=== PATIENT | male | born 1945 | race Caucasian/White ===

== ENCOUNTER 2016-07-20 12:57 | Inpatient (IN) | payer MEDICARE ==
--- NOTE | ~2016-07-20 | DS ---
Discharge Summary [facility] [address] [place]. [address] NAME: RO HINDS : 46 STATUS : DIS IN PAT#: [id number] AGE: 70 ADM/REG DATE : 07/20/16 MR#: [id number] REPORT SERV DATE: 07/22/16 DICTATED BY: OTF DALLAS DATE: 07/22/16 REPORT STATUS : Draft TRANSCRIBED BY: MODL DATE: 07/22/16 ADMISSION DATE: 07/20/2016 DISCHARGE DATE: 07/22/2016 ADMISSION DIAGNOSES: Sepsis secondary to cellulitis, urinary tract infection, Annalisa's gangrene, acute kidney injury, transaminitis. DISCHARGE DIAGNOSES: Multisystem organ failure, septic shock, thrombocytopenia, Annalisa's gangrene, acute kidney injury, lactic acidosis, anemia, shock, acute hepatic failure, lactic acidosis, mild hyperkalemia, hypocalcemia, hypoalbuminemia, acute hypercapnic respiratory failure. HOSPITAL COURSE: Mr. Hinds is a 70-year-old gentleman who was admitted on the 07/20/2016. Shortly after admission, the patient had a Urology consult and it was noted that the patient had Annalisa's gangrene. The patient had surgery on the 07/20/2016 for debridement of the penis. However, the patient unfortunately kept having worsening sepsis, and on the night of 07/20/2016 and 07/21/2016 of the morning thereof. The patient was transferred to the intensive care unit. He was noted to be in acute kidney injury, respiratory failure, with actually respiratory alkalosis. In the morning with the patient's worsening thrombocytopenia, sepsis, Infectious Disease was called. The patient's antibiotic course was changed to micafungin, clindamycin, vancomycin, meropenem. This was changed from Zosyn to higher broad coverage. The patient also underwent a Vas-Cath placement and started on CRRT. The patient had worsening acidosis and clotted the CRRT five times in 12 hours. Unfortunately, his thrombocytopenia continued to worsen. What is also very pronounced is his fibrinogen did not show DIC, however, he had a ferritin level of 32,000. It was also noted his liver was acutely failing. Unclear of the etiology. However, we suspect that the patient may have had Budd-Chiari syndrome or clotted off his liver due to his thrombocytopenia and worsening sepsis. He continued to deteriorate overnight. In the night of 07/21/2016 at about 7:30, a repeat arterial blood gas was checked which showed that the CO2 raised from 18 to 33 and pH continued to deteriorate. He was promptly intubated for respiratory support. Family was at the bedside. The patient's lactate was actually improving, however, it deteriorated further and his lactate went from 3 up to 16. Despite all efforts, on the morning of 07/22/2016, the patient was already made a DNR, family was at the bedside. CRRT clotted and the patient bradyed and went into an arrest. Around 7:30 in the morning, the patient was pronounced by the nursing staff. Family was at the bedside. Also of note, he also had hypoglycemia throughout this episode. DISPOSITION: The patient has and arrangements are currently being made. HFQ/JAMIE Otf [place] MD Discharge Summary [address] [address] NAME: RO HINDS : 46 STATUS : DIS IN PAT#: [id number] AGE: 70 ADM/REG DATE : 07/20/16 MR#: [id number] REPORT SERV DATE: 07/22/16 DICTATED BY: OTF DALLAS DATE: 07/22/16 REPORT STATUS : Draft TRANSCRIBED BY: MODL DATE: 07/22/16 / [id number] CC: MD Geronimo Armendariz MD
--- NOTE | ~2016-07-20 | CN ---
Consultation Report [facility] [address] [facility] [place]. [address] NAME: RO HINDS : 46 STATUS : DIS IN PAT#: [id number] AGE: 70 ADM/REG DATE : 07/20/16 MR#: [id number] REPORT SERV DATE: 07/22/16 DICTATED BY: CHON ZARATE DATE: 07/22/16 REPORT STATUS : Draft TRANSCRIBED BY: MODL DATE: 07/22/16 CONSULT DATE OF CONSULTATION: 07/22/2016 REASON FOR CONSULTATION: Acute liver injury/shock liver. HISTORY: Mr. Hinds is a 70-year-old, male with history of diabetes, hypertension, hyperlipidemia, on statin for long time, colonic polyps, admitted for penile gangrene and suprapubic cellulitis directly from his primary care physician's office, Dr. Cisneros. History as obtained from the chart. He has been seen since admission, initially admitted by Dr. Sky, hospitalist service, on the floor, then transferred to Pulmonary Critical Care in ICU due to acute kidney injury and sepsis, ended up getting intubated yesterday evening, started CRRT after consultation with Nephrology, also seen by infectious disease. After obtaining all the cultures, broad-spectrum antibiotic has been started in the form of vancomycin. Zosyn was stopped and started on meropenem. Clindamycin and micafungin by Dr. Aguiar. I was consulted yesterday evening. When I looked at the labs, his liver enzymes were in 100s predominantly AST higher than ALT, suspecting shock liver with medication injury since he has been on high dose of statin for long time. His condition has progressed significantly overnight. He has been on CRRT, filter has been changed multiple times, difficult to maintaining his pressure. He is on maximum Levophed and vasopressin. Blood pressure is still running in 50s and 60s. He started having bradycardia in 30s and 40s. Multiple family members are present in the room including . has just signed the paper for DNR and CRRT is about to stop. I have reviewed all the labs and the imaging studies and all the charts documentation and dictation by consultation. Since admission, he has also had surgery by Dr. Raymond. PAST MEDICAL HISTORY: Diabetes, hypertension, lipids, colonic polyp. No known liver disease. SOCIAL HISTORY: . 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 No alcohol or tobacco. ALLERGIES: NONE REPORTED. MEDICATIONS: Medicines at home prior to admission are Eliquis, aspirin, calcium, vitamin D, Lomotil, Lexapro, glimepiride, linagliptin with metformin, Zofran, Pravachol, quinapril with hydrochlorothiazide, and verapamil. FAMILY HISTORY: Colon cancer and aneurysm. REVIEW OF SYSTEMS: Unable to obtain. Consultation Report [address] [place]. [address] NAME: RO HINDS : 46 STATUS : DIS IN PAT#: [id number] AGE: 70 ADM/REG DATE : 07/20/16 MR#: [id number] REPORT SERV DATE: 07/22/16 DICTATED BY: CHON ZARATE DATE: 07/22/16 REPORT STATUS : Draft TRANSCRIBED BY: JAMIE DATE: 07/22/16 PHYSICAL EXAMINATION: GENERAL: Well developed, well nourished, intubated, sedated, and not responsive. VITAL SIGNS: Blood pressure 50s/70s, pulse 60, respirations 24, pulse 80. HEENT: Eyes have pallor, no icterus. Pupils are sluggishly reactive. NECK: Supple. Difficult to evaluate for JVD. No thyromegaly appreciated. LUNGS: Bilateral basilar rales. HEART: S1, S2 present. Bradycardia. Irregular. ABDOMEN: Distended, obese, soft. Bowel sounds are sluggish. PELVIS: Pelvic area was not examined since it has been covered by the dressing. LABORATORY DATA: WBC 13, hemoglobin 12, platelet 26, INR 3, D-dimer more than 20, ferritin 31,000, ionized calcium 2.8, ALT 1400, AST 4700, total bilirubin 2.8, albumin 1.2, sodium 136, potassium 4.7, chloride 96, bicarb 11, BUN 41, creatinine 4.4, glucose 95. CT of the abdomen; unremarkable liver, no signs of cirrhosis or severe portal hypertension, minimal free fluid in the abdomen. IMPRESSION: 1. Shock liver with septic syndrome with multiorgan failure. 2. Acute kidney injury secondary to ATN due to shock on CRRT. 3. Acute hypoxic respiratory failure due to septic shock. 4. Septic shock secondary to underlying Annalisa gangrene. 5. Severe metabolic acidosis, not responding to CRRT or bicarb drip. 6. Clinical DIC. PLAN: 1. This morning, after I came, the patient has been just made DNR, and has signed the paperwork. CRRT is about to stop. 2. From liver point of view, not much needs to be done. Prognosis extremely poor, obviously not a candidate for liver transplant. I had detail discussion with his . I answered all the questions. She understood the current situation and agreed for the outcome. I have not ordered any medication or changed anything at this point. Thank you for the consult. Please call if you any question or concerns. CP/MODL Chon Zarate M.D. / [id number] CC: MD Geronimo Armendariz MD
--- NOTE | ~2016-07-20 | CN ---
Consultation Report [facility] [address] [place]. [address] NAME: RO HINDS : 46 STATUS : ADM IN [facility]#: [id number] AGE: 70 ADM/REG DATE : 07/20/16 MR#: [id number] REPORT SERV DATE: 07/21/16 DICTATED BY: CR ARAGON DATE: 07/20/16 REPORT STATUS : Draft TRANSCRIBED BY: MODFior DATE: 07/20/16 DATE OF CONSULTATION: 07/20/2016 REASON FOR CONSULTATION: Penile infection. HISTORY OF PRESENT ILLNESS: Mr. Hinds is a 70-year-old white gentleman who was admitted to Dr. Sky's service today. He had seen his primary care physician, Dr. Cisneros, for the past couple of days, however, was unaware of the presenting problem until today. This gentleman states that he has been feeling poorly for several days and has in fact not been able to void since Tuesday which is about four days ago. His stated that he trickled a small amount of urine, however, what worse was that he began having pain and swelling in his penis with discoloration of the skin. He denied fever and chills, nausea and vomiting. He is a diabetic. He states Dr. Cisneros put him on Eliquis, he has taken two tablets. He has never seen a urologist before and denies any prior urinary tract history. PHYSICAL EXAMINATION: GENERAL: This is an acutely ill-appearing white gentleman. VITAL SIGNS: Reviewed. He is not febrile. CHEST: Clear. ABDOMEN: Not distended. Normal bowel sounds. No tenderness. EXTREMITIES: Unremarkable. : Penis is circumcised (I questioned the patient about this as well. The penile skin, particularly dorsally is discolored, dusky appearing with necrotic appearing epithelium. The glans is viable, otherwise unremarkable. The scrotum and testes are unremarkable. RECTAL: Not done. 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 PLAN: I explained the emergent nature of this situation to the patient and his . Dr. Sky was present as well. I have discussed this with him. We will need to proceed to an emergency debridement. Also, recommended an emergency CT scan which was done and reviewed. The bladder was not markedly distended and there was no hydronephrosis. I recommend broad- spectrum antibiotics and we are starting Zosyn and vancomycin. Serum creatinine is 6, white cell count is normal. Impression is Annalisa's gangrene. Plan, emergent debridement following emergent noncontrast CT scan. Procedure and risks explained to the patient. /JAMIE Cr Aragon M.D. / [id number] Consultation Report [address] [place]. [address] NAME: RO HINDS : 46 STATUS : ADM IN [facility]#: [id number] AGE: 70 ADM/REG DATE : 07/20/16 MR#: [id number] REPORT SERV DATE: 07/21/16 DICTATED BY: CR ARAGON DATE: 07/20/16 REPORT STATUS : Draft TRANSCRIBED BY: JAMIE DATE: 07/20/16 CC: Julio César Sky MD
--- NOTE | ~2016-07-20 | OP ---
Record Of Operation [facility] [address] [place]. [address] NAME: RO HINDS : 46 STATUS : ADM IN [facility]#: [id number] AGE: 70 ADM/REG DATE : 07/20/16 MR#: [id number] REPORT SERV DATE: 07/21/16 DICTATED BY: YADIRA CASTRO DATE: 07/21/16 REPORT STATUS : Draft TRANSCRIBED BY: MODFior DATE: 07/21/16 DATE OF PROCEDURE: 07/21/2016 TITLE OF PROCEDURE: Endotracheal intubation. INDICATION: Respiratory failure. PROCEDURE NOTE: Time-out was completed verifying correct patient and procedure. The patient was placed in a flat position. Sedation was obtained using 100 mg of propofol. The patient was easily ventilated using an Ambu bag. The GlideScope was used and inserted into the oropharynx at which time there was a grade 2 view of the vocal cords. An 8.0-Gibraltarian endotracheal tube was inserted and visualized going through the vocal cords. Stylet was removed. Colorimetric change was visualized on the CO2 meter. Breath sounds were heard in both lung larose bilaterally. The endotracheal tube was placed at 24 cm, measured at the teeth. I was present for the entire procedure. Chest x-ray was ordered to assess for pneumothorax and verify endotracheal tube placement. The patient tolerated the procedure well and there were no complications. KARSON/JAMIE Yadira Castro MD / [id number] CC: MD Geronimo Armendariz MD
--- NOTE | ~2016-07-20 | OP ---
Record Of Operation [facility] [address] [place]. [address] NAME: RO HINDS : 46 STATUS : ADM IN PAT#: [id number] AGE: 70 ADM/REG DATE : 07/20/16 MR#: [id number] REPORT SERV DATE: 07/20/16 DICTATED BY: CR ARAGON DATE: 07/20/16 REPORT STATUS : Draft TRANSCRIBED BY: MODL DATE: 07/20/16 DATE OF PROCEDURE: 07/20/2016 PREOPERATIVE DIAGNOSIS: Annalisa's gangrene in the penile skin. POSTOPERATIVE DIAGNOSIS: Annalisa's gangrene in the penile skin. OPERATIVE PROCEDURE: Sharp debridement of penis. ANESTHESIA: General inhalation. SURGEON: Cr Aragon M.D. CREATIVE RESOURCE MANAGER: Delroy Edmonds. ESTIMATED BLOOD LOSS: 5 mL. SPECIMENS: Devitalized dorsal penile skin. DRAINS: One #14 coude Leonard catheter. IMMEDIATE POSTOP: Critical. DESCRIPTION OF PROCEDURE: The patient was brought into the surgery suite, given general inhalational anesthetic in the supine position. Penis was prepped and draped in sterile fashion. The dorsum of the penis was markedly edematous and appeared with gangrenous changes to the skin. The glans was viable. The devitalized appearing skin was sharply debrided with scissor dissection until I reached what appeared to be vitalized tissue. Bovie cautery was used to control bleeding. At the close of the procedure, a #14 coude Leonard was passed per urethra into the bladder. A small amount of concentrated urine was obtained. He was sent to the lab for culture. At this point, sterile dressing was placed upon the penis and the was patient was awakened and sent to recovery in critical condition. MS/MODL Cr Aragon M.D. / [id number] CC: Julio César Sky MD
--- NOTE | ~2016-07-20 | HP ---
History And Physical [address] [address] NAME: RO HINDS : 46 STATUS : ADM IN PAT#: [id number] AGE: 70 ADM/REG DATE : 07/20/16 MR#: [id number] REPORT SERV DATE: 07/20/16 DICTATED BY: SERA SKY DATE: 07/20/16 REPORT STATUS : Draft TRANSCRIBED BY: MODL DATE: 07/20/16 DATE OF ADMISSION: 07/20/2016 REASON FOR ADMISSION: Direct admission for sepsis secondary to cellulitis along with hematuria and acute kidney injury from Dr. Cisneros's office. CHIEF COMPLAINT: "I have been feeling well since ." HISTORY OF PRESENT ILLNESS: A 70-year-old white male with a history of type 2 diabetes, hypertension, hyperlipidemia, initially been having issues since . The patient and his said that, he had a fever of 102 with chills and some dribbling of urine to the point, where he had to change his underwear several times, which is unusual for him. He also noticed that, he had some hematuria. The patient also had some body aches, was tested for the flu, and was found to be flu negative. He did get a shot of Rocephin on 07/18/2016. He has also been having some loose stools. The patient was in Dr. Cisneros's office today and finally admitted to having some redness around his penis and the patient had what looked like a considerable cellulitis with a penile mass. The patient states that, his dribbling of urine has stopped and he has actually been unable to void for the past day or two. His has been encouraging him to take some fluids including water and Gatorade. He has been keeping it down, but he feels like he is a little bit dehydrated. He did present with a mildly low blood pressure in the hospital. The patient denies any new changes in medications except for taking one to two doses of Eliquis, started by Dr. Cisneros. The patient denies any chest pain, nausea, vomiting, diaphoresis, shortness of breath. REVIEW OF SYSTEMS: As per HPI. Otherwise, 10-point system reviewed and negative. PAST MEDICAL HISTORY: Positive for hypertension, type 2 diabetes, valvular stenosis, hyperlipidemia, colonic polyps, bilateral cataracts. PAST SURGICAL HISTORY: Nothing. SOCIAL HISTORY: He denies any smoking, occasional alcohol use. He is with four kids. 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 FAMILY HISTORY: Denies any penile issues. MEDICATIONS: Include Eliquis 5 mg twice a day, aspirin 81 mg daily, Caltrate 600 mg twice a day, Lomotil p.r.n., Lexapro 10 mg every evening, Amaryl 1 mg every evening, Jentadueto 2.08/999 mg twice a day, Zofran p.r.n., Pravachol 80 mg at bedtime, quinapril/hydrochlorothiazide 20/25 mg daily, verapamil 300 mg every evening. ALLERGIES: NO KNOWN ALLERGIES.. PHYSICAL EXAMINATION: VITAL SIGNS: Blood pressure is 98/54, temperature is 37.3, pulse is 81, respirations are History And Physical [address] [address] NAME: RO HINSD : 46 STATUS : ADM IN [facility]#: [id number] AGE: 70 ADM/REG DATE : 07/20/16 MR#: [id number] REPORT SERV DATE: 07/20/16 DICTATED BY: SERA SKY DATE: 07/20/16 REPORT STATUS : Draft TRANSCRIBED BY: JAMIE DATE: 07/20/16 20, saturating 100% on room air. GENERAL: He is no acute distress. Mildly ill appearing, but nontoxic. HEENT: Normocephalic and atraumatic head. Extraocular muscles are intact. Oropharynx is clear, but dry. NECK: Supple. No JVD. CARDIAC: Regular rhythm. No gallops. PULMONARY: Clear to auscultation bilaterally. ABDOMEN: Soft, nontender, nondistended. Positive bowel sounds. Negative CVA tenderness. EXTREMITIES: Show no clubbing, cyanosis, or edema. PSYCHIATRIC: Cooperative, appears a little withdrawn. NEUROLOGICAL: No focal deficits. : Some visible hematuria on the penile head. There appears to be a penile mass on the anterior portion of the glans along with a suprapubic cellulitis. LABORATORIES: CBC is pending. CMP shows a sodium of 129, chloride 89, BUN of 60, creatinine 6.67, albumin 2.8. ALT 581, AST 771. IMPRESSION: 1. Sepsis secondary to cellulitis with a possible component of urinary tract infection. 2. Hematuria. 3. Penile mass. 4. Acute kidney injury. 5. Transaminitis. 6. Type 2 diabetes. PLAN: Plan is to do IV fluids. Start Ancef. Obtain labs with a procalcitonin, urinalysis, and culture. Consult Urology. A complete abdominal ultrasound to evaluate the liver along with the kidneys. We will hold any nephrotoxic agents including glimepiride, aspirin, Eliquis, Jentadueto, JAVI inhibitors, and diuretics. BETITO/MARIANNAL Sera Sky MD / [id number] CC: MD Geronimo Armendariz MD
--- NOTE | ~2016-07-20 | OP ---
Record Of Operation [facility] [address] [place]. [address] NAME: RO HINDS : 47 STATUS : ADM IN [facility]#: [id number] AGE: 70 ADM/REG DATE : 07/20/16 MR#: [id number] REPORT SERV DATE: 07/21/16 DICTATED BY: OTF DALLAS DATE: 07/21/16 REPORT STATUS : Draft TRANSCRIBED BY: MODL DATE: 07/21/16 DATE OF PROCEDURE: 07/21/2016 PROCEDURE: Right IJ Vas-Cath placement. PREOPERATIVE DIAGNOSIS: Acute kidney injury and septic shock. POSTOPERATIVE DIAGNOSIS: Acute kidney injury and septic shock. INDICATION FOR PROCEDURE: The patient is having septic shock, on pressor support and in need of renal replacement therapy. PROCEDURE NOTE: The patient was alert during the procedure, placed him in Trendelenburg position. We anesthetized the right neck after sterilization in sterile technique. After he was sterilized, using ultrasound guidance, we were able to isolate the right IJ. We were able to inserted the finer needle into the right IJ and placed the guidewire. Prior to dilation, we evaluated using ultrasound to ensure that we were in the IJ position. We then dilated the tract through the sternocleidomastoid muscle. At that moment in time, we were able to dilate the tract and have return of venous blood. We placed the Vas-Cath 15 cm line into this area and had return dark blood through both ports. We were able to secure this Vas-Cath and instill heparin into the port for use of CRRT machine. OUTCOME: Successful right IJ Vas-Cath with no apparent immediate complications. HFQ/JAMIE Otf [place] MD / [id number] CC: MD Geronimo Armendariz MD
--- NOTE | ~2016-07-20 | CN ---
Consultation Report [facility] [address] [place]. [address] NAME: RO HINDS : 47 STATUS : ADM IN PAT#: [id number] AGE: 70 ADM/REG DATE : 07/20/16 MR#: [id number] REPORT SERV DATE: 07/21/16 DICTATED BY: SUSHMA RUIZ DATE: 07/21/16 REPORT STATUS : Draft TRANSCRIBED BY: MODL DATE: 07/21/16 NEPHROLOGY CONSULTATION DATE OF CONSULTATION: 07/21/2016 INDICATION FOR CONSULTATION: Acute kidney injury. HISTORY OF PRESENT ILLNESS: Mr. Hinds is a 70-year-old male, who was sent from Dr. Cisneros's office following presentation for fever. He presented with a fever of 102 and chills, dribbling of urine, and had noted some hematuria. In addition, he had myalgias. On evaluation in the emergency room, he reported no urine output for two days. He was noted to have a penile mass anterior portion of the glans along with suprapubic cellulitis. Urology was consulted and Dr. Raymond took him to surgery urgently for sharp debridement of the penis and placement of 14 coude Leonard catheter. His baseline creatinine appears to be 1.01 in 01/2016. At presentation, his creatinine was 4.53 and has risen to 6.78 with a little urine output. Currently, he is on a bicarb drip and Levophed. PAST MEDICAL HISTORY: Type 2 diabetes mellitus, hypertension, colon polyps, hyperlipidemia, anxiety, depression, mild pulmonic stenosis, and cataracts. REVIEW OF SYSTEMS: HEENT: Negative. PULMONARY: Notes some shortness of breath. No cough or hemoptysis. CARDIAC: No chest pain. GI: Some loose stools. Minimal abdominal pain. : Noted hematuria, dribbling urine, and difficulty passing urine for two days. MUSCULOSKELETAL: Generalized myalgias. INTEGUMENT: Some redness over lower abdomen. No rash. NEUROLOGIC: No lateralizing weakness or seizure activity. Remainder of 12-point review of systems is negative. SOCIAL HISTORY: Per chart, no smoking, occasional alcohol use. with four kids. 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 FAMILY HISTORY: No end-stage renal disease. Positive for hypertension. MEDICATIONS: Eliquis; aspirin; calcium citrate; Lomotil; Lexapro; Amaryl; Jentadueto, which is linagliptin/metformin; Zofran; pravastatin; quinapril; verapamil. PHYSICAL EXAMINATION: VITAL SIGNS: Blood pressure 90/54, respiratory rate 20, temp max was 102.9 decreasing to 98.6. GENERAL: Pleasant white male, somewhat anxious. Consultation Report [facility] [address] [place]. [address] NAME: RO HINDS : 47 STATUS : ADM IN PAT#: [id number] AGE: 70 ADM/REG DATE : 07/20/16 MR#: [id number] REPORT SERV DATE: 07/21/16 DICTATED BY: SUSHMA RUIZ DATE: 07/21/16 REPORT STATUS : Draft TRANSCRIBED BY: JAMIE DATE: 07/21/16 HEENT: Eyes, no scleral icterus. Pupils reactive symmetrically. Nares patent. No lesions. Throat, no injection. Mucous membranes dry. NECK: No thyromegaly, masses, bruits. CHEST/LUNGS: Crackles laterally. No wheezing. No rhonchi. ABDOMEN: Positive bowel sounds. Nontender. No hepatosplenomegaly. : Indwelling Leonard. RECTAL: Not performed. EXTREMITIES: No edema. No calf tenderness. DERMIS: No rash. NEUROLOGIC: Cranial nerves appear intact. No lateralizing weakness. MUSCULOSKELETAL: No deformity. IMPRESSION: 1. Acute kidney injury likely acute tubular necrosis due to sepsis and severe shock complicated by prerenal state, JAVI inhibitor effect. 2. Acute hypoxemic respiratory failure. 3. Genitourinary cellulitis/Annalisa gangrene. 4. Type 2 diabetes mellitus. 5. Lactic acidosis/metabolic acidosis. 6. Transaminitis likely due to sepsis and complicated by Tylenol. 7. Thrombocytopenia. 8. History of hypertension. 9. Colon polyps. 10.Dyslipidemia. 11.Mild pulmonic stenosis. 12.Depression and anxiety. PLAN: 1. Labs. 2. Began SHRIMP CLEANER. 3. Stop bicarb drip once SHRIMP CLEANER is in progress. CRISTOPHER/JAMIE Sushma Ruiz M.D. / [id number] CC: MD Geronimo Armendariz MD
--- NOTE | ~2016-07-20 | CN ---
Consultation Report [facility] [address] [place]. [address] NAME: RO HINDS : 47 STATUS : ADM IN PAT#: [id number] AGE: 70 ADM/REG DATE : 07/20/16 MR#: [id number] REPORT SERV DATE: 07/22/16 DICTATED BY: DIEUDONNE ARTHUR DATE: 07/21/16 REPORT STATUS : Draft TRANSCRIBED BY: MODL DATE: 07/21/16 INFECTIOUS DISEASE CONSULT DATE OF CONSULTATION: REASON FOR CONSULT: Severe sepsis. HISTORY OF PRESSENT ILLNESS: A 70-year-old white male with history of diabetes, hypertension, hyperlipidemia, colon polyps, who was admitted for a penile gangrene and suprapubic cellulitis. The history is obtained from the chart and from the . The patient is awake but apparently unable to provide sufficient information. He works at [employer], and he comes home on weekends. Last Tuesday, when he came he complained of body aches, fever, had some nausea, vomiting, and loose stools. He got worse over the weekend. At some point, he had difficulty urinating with just dribbling and maybe hematuria. He saw his PCP two days ago who did a flu test, it was negative, and apparently gave him a dose of Rocephin as well as prescribed Lomotil. In Dr. Cisneros's note, he recorded myalgias, fever, he wanted to do an echocardiogram. WBC was 13, hemoglobin 14, platelets 130. Glucose was 220. Influenza negative. The patient returned the next day after the noticed the redness in the suprapubic area. It is unclear how long he has had. Dr. Cisneros referred him for admission. I tried to ask the patient and the . Again, it is unclear what caused the penile swelling. No trauma or bites were reported. No prior history of skin infections, boils, or wounds. At the hospital, the urologist describes a dusky dorsal penile skin and suprapubic cellulitis. There is swelling of the glans. He was hypotensive. Lab work showed acute renal insufficiency with a creatinine of 6.6, hyponatremia with sodium of 129, liver failure with ALT of 580 and AST of 770, procalcitonin of 47. He was started on vancomycin and Zosyn. A CT scan was done as well and showed edema of the pelvic floor, groins, scrotum, penis, bilateral inguinal lymph nodes, and possibly multiple iliac lymph nodes. Also, there is an atrophic pancreas and prostate above 4 x 5 cm with calcifications. The patient was taken to the operating room last night for debridement of penile dorsum gangrene. A Leonard catheter was placed, but there is little urine. He was then transferred to ICU. He is not on a ventilator, but he is tachypneic. ABGs showed metabolic acidosis. He is on pressor support now with Levophed of 20. He made very little urine. He has not had any vomiting or bowel movements today. LAB WORK: Shows a CO2 of 17, creatinine increased now to 8, bicarb decreased to 14, bilirubin increased to 2.8, ALT to 1200, AST to 3800. Chest x-ray shows some basilar atelectasis. A dialysis catheter was placed, and he started CRRT. Also right subclavian line was placed. Upon discussing with the patient, he does not complain of any area of pain. PAST MEDICAL HISTORY: As I mentioned above plus cataracts, colon polyps, and history of Consultation Report [address] [address] NAME: RO HINDS : 47 STATUS : ADM IN [facility]#: [id number] AGE: 70 ADM/REG DATE : 07/20/16 MR#: [id number] REPORT SERV DATE: 07/22/16 DICTATED BY: DIEUDONNE ARTHUR DATE: 07/21/16 REPORT STATUS : Draft TRANSCRIBED BY: MODFior DATE: 07/21/16 heart murmur. He had an illness several years ago that was unexplained that lasted several weeks. SOCIAL HISTORY: He is . 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 He has dogs but did not bite or scratch him. ALLERGIES: NONE REPORTED. MEDICATIONS ON ADMISSION: Eliquis, aspirin, calcium, vitamin D, Lomotil as needed, Lexapro, glimepiride, linagliptin with metformin, Zofran as needed, Pravachol, quinapril with hydrochlorothiazide, and verapamil extended release. FAMILY HISTORY: Colon cancer and aneurysms. PHYSICAL EXAMINATION: GENERAL: He is actually awake, but he is tachypneic and weak. HEENT: He has anterior tongue bruising. Oral mucosa is dry. HEART: Regular rhythm. Distant sounds. LUNGS: Clear to auscultation anteriorly. ABDOMEN: Distended quite, nontender to palpation, suprapubic area erythema which according to the has not progressed. : Penile skin, foreskin was resected. The scrotum has some edema, but I do not see necrotic areas. He has a right subclavian line as I mentioned. His feet and hands are very cold to touch. He has no erythema over his buttocks. ASSESSMENT AND PLAN: 1. Severe sepsis with shock and multiorgan failure including acidosis, acute renal failure, liver failure. He is started on CRRT. He is on pressors. 2. Penile skin gangrene of unclear etiology, status post surgical debridement last night. 3. Diabetes. Obviously, he is extremely ill. No culture result available. His blood and urine cultures pending, but he was making little urine. The lab systems analyst could not find operative culture specimen. During this process, he probably had perineal and penile exposure to feces due to loose stools. He is a diabetic although the hemoglobin A1c is not very high, just 7. Given the illness, I would like to give very broad-spectrum antibiotics. This is the fact that now we see resistant bacteria in the community and I cannot exclude given the possibility of a Katie infection. I am going to use vancomycin, meropenem, micafungin, and add clindamycin for the possibility of toxin producing gram-positive coccus. Check an echocardiogram. He also has now thrombocytopenia platelet count down to 83, neutropenia, WBC of 3.7. This factors along with hypoglycemia are poor prognostic factors. I discussed with the along with Dr. Dallas and explained the severity of his illness. I discussed with Dr. Dallas as well. Consultation Report [place] [id number] [facility] [place]. [address] NAME: RO HINDS : 47 STATUS : ADM IN [facility]#: [id number] AGE: 70 ADM/REG DATE : 07/20/16 MR#: [id number] REPORT SERV DATE: 07/22/16 DICTATED BY: DIEUDONNE ARTHUR DATE: 07/21/16 REPORT STATUS : Draft TRANSCRIBED BY: JAMIE DATE: 07/21/16 ANTOLIN/JAMIE Dieudonne Arthur M.D. / [id number] CC: MD Geronimo Armendariz MD
[2016-07-20 00:02] LABS: CALCIUM, SERUM 8.5 MG/DL (8.5-10.4); CO2 (CARBON DIOXIDE) 23 MMOL/L (24-34); SGOT(AST) 450 U/L (5-40); SGPT(ALT) 379 U/L (5-65); TOTAL BILIRUBIN 0.6 MG/DL (0-1.2); TOTAL PROTEIN 6.6 G/DL (6.0-8.5)
[2016-07-20 00:08] LABS: A/G RATIO 0.9 (0.7-1.9); ALBUMIN 3.1 G/DL (3.5-5.0); ALKALINE PHOSPHATASE 90 U/L (45-117); BUN (BLOOD UREA NITROGEN) 39 MG/DL (6-23); CREATININE 4.53 MG/DL (0.70-1.30); GFR AFRICAN AMERICAN 14 ML/MIN (>=60); GFR NON AFRICAN AMERICAN 12 ML/MIN (>=60); GLOBULIN 3.5 G/DL (2.5-4.1); GLUCOSE, SERUM 214 MG/DL (60-99)
[~2016-07-20 12:57] MED LIST: AMARYL1 MG PO; ASAB PO; JENTADUETO 2.51 EAC2; LEXAPRO10 PO; OS500+D PO; PRAVACHOL80 MG PO; QUINARETIC PO; VERELAN PM300 MG PO; VITC500 PO
[2016-07-20 13:42] LABS: CHLORIDE, SERUM 91 MMOL/L (96-112); POTASSIUM, SERUM 3.8 MMOL/L (3.5-5.3); SODIUM, SERUM 133 MMOL/L (135-148)
[2016-07-20 13:42] LABS: A/G RATIO 0.7 (0.7-1.9); ALBUMIN 2.8 G/DL (3.5-5.0); ALKALINE PHOSPHATASE 98 U/L (45-117); CALCIUM, SERUM 8.7 MG/DL (8.5-10.4); CO2 (CARBON DIOXIDE) 20 MMOL/L (24-34); GFR AFRICAN AMERICAN 9 ML/MIN (>=60); GFR NON AFRICAN AMERICAN 8 ML/MIN (>=60); GLOBULIN 3.8 G/DL (2.5-4.1); GLUCOSE, SERUM 188 MG/DL (60-99); POTASSIUM, SERUM 4.1 MMOL/L (3.5-5.3); SGOT(AST) 771 U/L (5-40); SGPT(ALT) 581 U/L (5-65); TOTAL BILIRUBIN 0.7 MG/DL (0-1.2); TOTAL PROTEIN 6.6 G/DL (6.0-8.5)
[2016-07-20 13:43] LABS: BUN (BLOOD UREA NITROGEN) 60 MG/DL (6-23); CHLORIDE, SERUM 89 MMOL/L (96-112); CREATININE 6.67 MG/DL (0.70-1.30); SODIUM, SERUM 129 MMOL/L (135-148)
[2016-07-20] MEDS ORDERED: LOM PO (14:03)
[2016-07-20] MEDS ORDERED: ZOFRAN8 PO (14:03)
[2016-07-20] MEDS ORDERED: AMARYL1 MG PO (14:04)
[2016-07-20] MEDS ORDERED: ACCURETIC1 TAB PO (14:04)
[2016-07-20] MEDS ORDERED: JENTADUETO 2.51 EAC2 PO (14:04)
[2016-07-20] MEDS ORDERED: ELIQUIS 5 MG TAB5 MG PO (14:04)
[2016-07-20] MEDS ORDERED: CALTRA600D PO (14:05)
[2016-07-20] MEDS ORDERED: ASAB PO (14:05)
[2016-07-20] MEDS ORDERED: LEXAPRO10 PO (14:05)
[2016-07-20] MEDS ORDERED: PRAVACHOL80 MG PO (14:06)
[2016-07-20] MEDS ORDERED: VERELAN PM300 MG PO (14:06)
[2016-07-20 16:41] LABS: BASOPHILS 0.1 %; BASOPHILS ABSOLUTE 0.01 10/3/uL (0.0-0.16); EOSINOPHILS 2.2 %; EOSINOPHILS ABSOLUTE 0.15 10/3/uL (0.0-0.53); IMMATURE GRANULOCYTES 0.7 %; IMMATURE GRANULOCYTES ABSOLUTE 0.05 10/3/uL (0.0-0.11); LYMPHOCYTES 7.5 %; MEAN CORPUS HGB CONC 35.1 g/dL (32.0-36.0); MEAN CORPUSCULAR HEMOGLOB 30.8 pg (26.0-34.0); MEAN CORPUSCULAR VOLUME 87.7 fL (80-100); MEAN PLATELET VOLUME 11.7 fL (9.2-13.0); MONOCYTES 2.5 %; MONOCYTES ABSOLUTE 0.17 10/3/uL (0.21-1.20); PLATELET COUNT 123 10/3/uL (150-400); RBC DISTRIBUTION WIDTH 15.1 % (12.0-16.0); RED CELL COUNT 4.22 10/6/uL (4.7-6.1); WHITE BLOOD CELLS 6.7 10/3/uL (4.5-10.5)
[2016-07-20 16:44] LABS: MANUAL DIFF NO %
[2016-07-20 16:52] LABS: INTERNATIONAL NORMAL RATI 1.9 UNITS (-); PROTIME (NOT ORD) 21.5 SEC (12.0-14.5)
[2016-07-20 22:59] LABS: BE (BASE EXCESS) -6.9 MEQ/L (0 +/- 2.5); CARBOXYHEMOGLOBIN 0.2 % (0-3); DEVICE NC; HCO3 (ACTUAL BICARBONATE) 17.2 MEQ/L (23-27); HEMOBLOGIN CONTENT 12.6 G/DL (14-18); INSTRUMENT SERIAL # 8083; METHEMOGLOBIN 0.4 % (0-3); OPERATOR ID 30013; PCO2 (CO2 TENSION) 31 MMHG (35-45); PO2 (O2 TENSION) 59 MMHG (79-93); SAMPLE Arterial; pH 7.37 (7.37-7.43)
[2016-07-20 23:28] LABS: HEMATOCRIT 33.9 % (40.0-51.0); HEMOGLOBIN 11.9 g/dL (13.6-17.8); MEAN CORPUS HGB CONC 35.1 g/dL (32.0-36.0); MEAN CORPUSCULAR HEMOGLOB 30.3 pg (26.0-34.0); MEAN CORPUSCULAR VOLUME 86.3 fL (80-100); MEAN PLATELET VOLUME 11.4 fL (9.2-13.0); PLATELET COUNT 96 10/3/uL (150-400); RBC DISTRIBUTION WIDTH 15.1 % (12.0-16.0); RED CELL COUNT 3.93 10/6/uL (4.7-6.1); WHITE BLOOD CELLS 4.7 10/3/uL (4.5-10.5)
[2016-07-20 23:33] LABS: MANUAL DIFF YES %
[2016-07-20 23:47] LABS: A/G RATIO 0.7 (0.7-1.9); ALBUMIN 2.3 G/DL (3.5-5.0); ALKALINE PHOSPHATASE 73 U/L (45-117); BUN (BLOOD UREA NITROGEN) 69 MG/DL (6-23); CALCIUM, SERUM 7.6 MG/DL (8.5-10.4); CHLORIDE, SERUM 93 MMOL/L (96-112); CO2 (CARBON DIOXIDE) 19 MMOL/L (24-34); CREATININE 6.69 MG/DL (0.70-1.30); GFR AFRICAN AMERICAN 9 ML/MIN (>=60); GFR NON AFRICAN AMERICAN 8 ML/MIN (>=60); GLOBULIN 3.3 G/DL (2.5-4.1); GLUCOSE, SERUM 78 MG/DL (60-99); PHOSPHORUS, SERUM 3.8 MG/DL (2.5-4.5); POTASSIUM, SERUM 4.2 MMOL/L (3.5-5.3); SGOT(AST) 1243 U/L (5-40); SGPT(ALT) 589 U/L (5-65); SODIUM, SERUM 130 MMOL/L (135-148); TOTAL PROTEIN 5.6 G/DL (6.0-8.5)
[2016-07-20 23:49] LABS: BAND NEUTROPHILS 58 %; BASOPHILS 1 %; BASOPHILS ABSOLUTE (CALC) 0.05 10/3/uL (0.0-0.16); EOSINOPHILS 1 %; EOSINOPHILS ABSOLUTE (CALC) 0.05 10/3/uL (0.0-0.53); IMMATURE GRANS ABSOLUTE (CALC) 0.09 10/3/uL (0.0-0.11); LYMPHOCYTES 4 %; LYMPHOCYTES ABSOLUTE (CALC) 0.19 10/3/uL (0.67-4.30); METAMYELOCYTES 1 %; MONOCYTES 4 %; MONOCYTES ABSOLUTE (CALC) 0.19 10/3/uL (0.21-1.20); MYELOCYTES 1 %; NEUTROPHILS ABSOLUTE (CALC) 4.14 10/3/uL (2.02-8.40); PLATELET ESTIMATE SLT DEC (ADEQUATE); SEGMENTED NEUTROPHIL (0) 30 %; TOTAL NUCLEATED CELLS 100
[2016-07-20 23:50] LABS: RBC MORPHOLOGY NORM (NORMAL)
[2016-07-21 04:45] LABS: BASOPHILS 0.3 %; BASOPHILS ABSOLUTE 0.01 10/3/uL (0.0-0.16); EOSINOPHILS 3.5 %; EOSINOPHILS ABSOLUTE 0.13 10/3/uL (0.0-0.53); HEMATOCRIT 34.6 % (40.0-51.0); HEMOGLOBIN 12.1 g/dL (13.6-17.8); IMMATURE GRANULOCYTES 0.8 %; IMMATURE GRANULOCYTES ABSOLUTE 0.03 10/3/uL (0.0-0.11); LYMPHOCYTES 10.2 %; LYMPHOCYTES ABSOLUTE 0.38 10/3/uL (0.67-4.30); MEAN CORPUSCULAR HEMOGLOB 30.3 pg (26.0-34.0); MEAN CORPUSCULAR VOLUME 86.5 fL (80-100); MEAN PLATELET VOLUME 11.7 fL (9.2-13.0); MONOCYTES 4.3 %; MONOCYTES ABSOLUTE 0.16 10/3/uL (0.21-1.20); NEUTROPHILS 80.9 %; PLATELET COUNT 83 10/3/uL (150-400); RBC DISTRIBUTION WIDTH 15.4 % (12.0-16.0); WHITE BLOOD CELLS 3.7 10/3/uL (4.5-10.5)
[2016-07-21 04:52] LABS: MANUAL DIFF NO %
[2016-07-21 04:56] LABS: A/G RATIO 0.7 (0.7-1.9); ALBUMIN 2.1 G/DL (3.5-5.0); CALCIUM, SERUM 7.2 MG/DL (8.5-10.4); CHLORIDE, SERUM 97 MMOL/L (96-112); CO2 (CARBON DIOXIDE) 17 MMOL/L (24-34); CREATININE 6.78 MG/DL (0.70-1.30); GFR AFRICAN AMERICAN 9 ML/MIN (>=60); GFR NON AFRICAN AMERICAN 8 ML/MIN (>=60); GLOBULIN 3.1 G/DL (2.5-4.1); PHOSPHORUS, SERUM 3.4 MG/DL (2.5-4.5); POTASSIUM, SERUM 4.2 MMOL/L (3.5-5.3); SGOT(AST) 1744 U/L (5-40); SGPT(ALT) 718 U/L (5-65); SODIUM, SERUM 132 MMOL/L (135-148); TOTAL PROTEIN 5.2 G/DL (6.0-8.5)
[2016-07-21 04:58] LABS: ALKALINE PHOSPHATASE 87 U/L (45-117); BUN (BLOOD UREA NITROGEN) 74 MG/DL (6-23); GLUCOSE, SERUM 51 MG/DL (60-99); TOTAL BILIRUBIN 1.5 MG/DL (0-1.2)
[2016-07-21 05:21] LABS: BE (BASE EXCESS) -5.9 MEQ/L (0 +/- 2.5); CARBOXYHEMOGLOBIN 0.5 % (0-3); DEVICE VM; HCO3 (ACTUAL BICARBONATE) 16.9 MEQ/L (23-27); HEMOBLOGIN CONTENT 12.9 G/DL (14-18); INSTRUMENT SERIAL # 8083; METHEMOGLOBIN 0.3 % (0-3); O2 CONTENT 16.9 VOL% (18-24); OPERATOR ID 30013; PCO2 (CO2 TENSION) 26 MMHG (35-45); PO2 (O2 TENSION) 67 MMHG (79-93); SAMPLE Arterial; pH 7.43 (7.37-7.43)
[2016-07-21 12:56] LABS: ACETAMINOPHEN LEVEL (TYLENOL) 4.9 MCG/ML (10.0-20.0)
[2016-07-21 15:47] LABS: BE (BASE EXCESS) -8.6 MEQ/L (0 +/- 2.5); CARBOXYHEMOGLOBIN 0.3 % (0-3); HCO3 (ACTUAL BICARBONATE) 12.3 MEQ/L (23-27); INSTRUMENT SERIAL # 8083; METHEMOGLOBIN 0.5 % (0-3); O2 CONTENT 19.9 VOL% (18-24); PCO2 (CO2 TENSION) 18 MMHG (35-45); PO2 (O2 TENSION) 73 MMHG (79-93); SAMPLE Arterial; pH 7.46 (7.37-7.43)
[2016-07-21 16:36] LABS: A/G RATIO 0.5 (0.7-1.9); ALBUMIN 1.8 G/DL (3.5-5.0); CALCIUM, SERUM 7.3 MG/DL (8.5-10.4); CHLORIDE, SERUM 99 MMOL/L (96-112); GLOBULIN 3.4 G/DL (2.5-4.1); PHOSPHORUS, SERUM 3.2 MG/DL (2.5-4.5); POTASSIUM, SERUM 4.4 MMOL/L (3.5-5.3); SGOT(AST) 3867 U/L (5-40); SGPT(ALT) 1242 U/L (5-65); SODIUM, SERUM 132 MMOL/L (135-148); TOTAL PROTEIN 5.2 G/DL (6.0-8.5)
[2016-07-21 16:37] LABS: ALKALINE PHOSPHATASE 125 U/L (45-117); BUN (BLOOD UREA NITROGEN) 79 MG/DL (6-23); CO2 (CARBON DIOXIDE) 14 MMOL/L (24-34); CREATININE 8.06 MG/DL (0.70-1.30); GFR AFRICAN AMERICAN 7 ML/MIN (>=60); GFR NON AFRICAN AMERICAN 6 ML/MIN (>=60); GLUCOSE, SERUM 54 MG/DL (60-99); TOTAL BILIRUBIN 2.8 MG/DL (0-1.2)
[2016-07-21 18:08] LABS: FIBRINOGEN 582 MG/DL (230-462); PARTIAL THROMBO TIME 47.1 SEC (22.5-37.2)
[2016-07-21 18:09] LABS: PROTIME (NOT ORD) 30.9 SEC (12.0-14.5)
[2016-07-21 18:36] LABS: D-DIMER QUANTITATIVE > 20.00 ug/mLFEU (< 0.50)
[2016-07-21 18:58] LABS: FERRITIN 31702 NG/ML (26-388)
[2016-07-21 19:40] LABS: BE (BASE EXCESS) -15.9 MEQ/L (0 +/- 2.5); INSTRUMENT SERIAL # 8083; PCO2 (CO2 TENSION) 33 MMHG (35-45); PO2 (O2 TENSION) 69 MMHG (79-93); pH 7.16 (7.37-7.43)
[2016-07-21 19:41] LABS: DEVICE VM; HCO3 (ACTUAL BICARBONATE) 11.6 MEQ/L (23-27); HEMOBLOGIN CONTENT 15.2 G/DL (14-18); METHEMOGLOBIN 0.3 % (0-3); O2 CONTENT 18.8 VOL% (18-24); OPERATOR ID 13415; SAMPLE Arterial
[2016-07-21 19:46] LABS: PLATELET COUNT 36 10/3/uL (150-400)
[2016-07-21 21:04] LABS: INSTRUMENT SERIAL # 8083; PCO2 (CO2 TENSION) 37 MMHG (35-45); pH 7.16 (7.37-7.43)
[2016-07-21 21:05] LABS: CARBOXYHEMOGLOBIN 0.3 % (0-3); HCO3 (ACTUAL BICARBONATE) 12.7 MEQ/L (23-27); METHEMOGLOBIN 0.3 % (0-3); MODE CMV; O2 CONTENT 19.1 VOL% (18-24); OPERATOR ID 13415; PO2 (O2 TENSION) 115 MMHG (79-93); SAMPLE Arterial; TIDAL VOLUME 500 ML
[2016-07-21 23:00] LABS: HEMOGLOBIN 13.2 g/dL (13.6-17.8); MEAN CORPUS HGB CONC 34.7 g/dL (32.0-36.0); MEAN CORPUSCULAR HEMOGLOB 30.9 pg (26.0-34.0); RBC DISTRIBUTION WIDTH 15.8 % (12.0-16.0); RED CELL COUNT 4.27 10/6/uL (4.7-6.1)
[2016-07-21 23:08] LABS: PLATELET COUNT 38 10/3/uL (150-400); WHITE BLOOD CELLS 8.8 10/3/uL (4.5-10.5)
[2016-07-21 23:09] LABS: MANUAL DIFF YES %
[2016-07-21 23:17] LABS: CHLORIDE, SERUM 99 MMOL/L (96-112); POTASSIUM, SERUM 4.6 MMOL/L (3.5-5.3); SODIUM, SERUM 135 MMOL/L (135-148)
[2016-07-21 23:18] LABS: BUN (BLOOD UREA NITROGEN) 52 MG/DL (6-23); CALCIUM, SERUM 6.1 MG/DL (8.5-10.4); CO2 (CARBON DIOXIDE) 10 MMOL/L (24-34); CREATININE 5.38 MG/DL (0.70-1.30); GFR AFRICAN AMERICAN 12 ML/MIN (>=60); GFR NON AFRICAN AMERICAN 10 ML/MIN (>=60); GLUCOSE, SERUM 87 MG/DL (60-99)
[2016-07-22 00:26] LABS: BAND NEUTROPHILS 11 %; EOSINOPHILS 1 %; EOSINOPHILS ABSOLUTE (CALC) 0.09 10/3/uL (0.0-0.53); IMMATURE GRANS ABSOLUTE (CALC) 0.09 10/3/uL (0.0-0.11); LYMPHOCYTES 20 %; LYMPHOCYTES ABSOLUTE (CALC) 1.76 10/3/uL (0.67-4.30); METAMYELOCYTES 1 %; MONOCYTES 7 %; MONOCYTES ABSOLUTE (CALC) 0.62 10/3/uL (0.21-1.20); NEUTROPHILS ABSOLUTE (CALC) 6.25 10/3/uL (2.02-8.40); SEGMENTED NEUTROPHIL (0) 60 %; TOTAL NUCLEATED CELLS 100; TOXIC GRANULATION MOD; VACUOLATED NEUTROPHILES MOD
[2016-07-22 03:05] LABS: BE (BASE EXCESS) -22.1 MEQ/L (0 +/- 2.5); CARBOXYHEMOGLOBIN 0.5 % (0-3); HCO3 (ACTUAL BICARBONATE) 6.5 MEQ/L (23-27); HEMOBLOGIN CONTENT 13.2 G/DL (14-18); INSTRUMENT SERIAL # 8083; METHEMOGLOBIN 0.4 % (0-3); MODE CMV; O2 CONTENT 18.2 VOL% (18-24); OPERATOR ID 13415; PCO2 (CO2 TENSION) 23 MMHG (35-45); PO2 (O2 TENSION) 128 MMHG (79-93); SAMPLE Arterial; TIDAL VOLUME 500 ML; pH 7.07 (7.37-7.43)
[2016-07-22 04:13] LABS: HEMATOCRIT 34.2 % (40.0-51.0); HEMOGLOBIN 11.9 g/dL (13.6-17.8); MEAN CORPUS HGB CONC 34.8 g/dL (32.0-36.0); MEAN CORPUSCULAR HEMOGLOB 31.3 pg (26.0-34.0); MEAN PLATELET VOLUME 10.4 fL (9.2-13.0)
[2016-07-22 04:17] LABS: MANUAL DIFF YES %; PLATELET COUNT 26 10/3/uL (150-400); WHITE BLOOD CELLS 13.1 10/3/uL (4.5-10.5)
[2016-07-22 04:54] LABS: CHLORIDE, SERUM 96 MMOL/L (96-112); GLUCOSE, SERUM 95 MG/DL (60-99); SGPT(ALT) 1424 U/L (5-65); SODIUM, SERUM 136 MMOL/L (135-148); TOTAL BILIRUBIN 2.6 MG/DL (0-1.2)
[2016-07-22 04:56] LABS: A/G RATIO 0.6 (0.7-1.9); ALBUMIN 1.2 G/DL (3.5-5.0); ALKALINE PHOSPHATASE 155 U/L (45-117); BUN (BLOOD UREA NITROGEN) 41 MG/DL (6-23); CALCIUM, SERUM 5.2 MG/DL (8.5-10.4); CO2 (CARBON DIOXIDE) 11 MMOL/L (24-34); CREATININE 4.41 MG/DL (0.70-1.30); GFR AFRICAN AMERICAN 15 ML/MIN (>=60); GFR NON AFRICAN AMERICAN 13 ML/MIN (>=60); GLOBULIN 2.1 G/DL (2.5-4.1); PHOSPHORUS, SERUM 5.8 MG/DL (2.5-4.5); POTASSIUM, SERUM 4.7 MMOL/L (3.5-5.3); TOTAL PROTEIN 3.3 G/DL (6.0-8.5)
[2016-07-22 04:57] LABS: SGOT(AST) 4775 U/L (5-40)
[2016-07-22 05:17] LABS: BAND NEUTROPHILS 14 %; BASOPHILS 1 %; BASOPHILS ABSOLUTE (CALC) 0.13 10/3/uL (0.0-0.16); EOSINOPHILS 2 %; EOSINOPHILS ABSOLUTE (CALC) 0.26 10/3/uL (0.0-0.53); GIANT PLATELET OCC; IMMATURE GRANS ABSOLUTE (CALC) 0.66 10/3/uL (0.0-0.11); LYMPHOCYTES 23 %; LYMPHOCYTES ABSOLUTE (CALC) 3.01 10/3/uL (0.67-4.30); METAMYELOCYTES 3 %; MONOCYTES 5 %; MONOCYTES ABSOLUTE (CALC) 0.66 10/3/uL (0.21-1.20); MYELOCYTES 2 %; NEUTROPHILS ABSOLUTE (CALC) 8.38 10/3/uL (2.02-8.40); SEGMENTED NEUTROPHIL (0) 50 %; TOTAL NUCLEATED CELLS 100; TOXIC GRANULATION MOD
[2016-07-22 05:18] LABS: BURR CELLS 3+ (>30/OIF) (0-2/OIF); VACUOLATED NEUTROPHILES MOD
[2016-07-22 07:56] LABS: SMEAR FOR ABNORMAL CELLS SEE PATHOLOGY REPORT
[2016-07-22 11:01] LABS: HEPATITIS B SURFACE ANTIGEN NON-REACTIVE (NON-REACT)
[2016-07-22 11:28] LABS: HEPATITIS C ANTIBODY NON-REACTIVE (NON-REACT)
[2016-07-22 11:29] LABS: HEPATITIS B CORE AB IGM NON-REACTIVE (NON-REAC)
[2016-07-22 11:31] LABS: HEP A ANTIBODY IGM NON-REACTIVE (NON-REACT)
== END 2016-07-22 07:34 | disposition expired | DRG 853 ==
LOC: 7NO 12:57 → MIC 21:44
PROVIDERS: Family Medicine; Internal Medicine; Internal Medicine Critical Care Medicine; Internal Medicine Nephrology
DX: A41.9 Sepsis, unspecified organism (principal); R65.21 Severe sepsis with septic shock; D65 Disseminated intravascular coagulation [defibrination syndrome]; J96.01 Acute respiratory failure with hypoxia; J96.02 Acute respiratory failure with hypercapnia; K72.00 Acute and subacute hepatic failure without coma; N17.0 Acute kidney failure with tubular necrosis; E11.9 Type 2 diabetes mellitus without complications; D47.3 Essential (hemorrhagic) thrombocythemia; Q25.6 Stenosis of pulmonary artery; N39.0 Urinary tract infection, site not specified; E87.2 Acidosis; Z66 Do not resuscitate; I10 Essential (primary) hypertension; E78.5 Hyperlipidemia, unspecified; N48.22 Cellulitis of corpus cavernosum and penis; N49.3 Fournier gangrene; Z79.82 Long term (current) use of aspirin; Z79.899 Other long term (current) drug therapy; F41.9 Anxiety disorder, unspecified; F32.9 Major depressive disorder, single episode, unspecified; K63.5 Polyp of colon; E87.5 Hyperkalemia
CPT/HCPCS: 31720; 36415; 71010; 74000; 74176; 80048; 80053; 80074; 82330; 82533; 82728; 82805; 82947; 82962; 83036; 83605; 83735; 84100; 84145; 84443; 85025; 85027; 85049; 85379; 85384; 85610; 85730; 87040; 87086; 87641; 87804; 88304; 93005; 94002; A9270-GY; C1894; G0463; G0480; J0610; J2185; J2248; J2250; J2370; J2405; J2543; J3010; J3370; P9045